=== PATIENT | female | born 1980 | race Caucasian/White ===

== ENCOUNTER 2018-02-03 09:17 | Emergency (ER) | payer OTHER ==
[2018-02-03] MEDS: HYDROCODONE/APAP (10/325) TAB PO (10:18)
== END 2018-02-03 10:49 | disposition home or self-care (01) ==
LOC: FTE 09:17
DX: L02.213 Cutaneous abscess of chest wall (principal); D17.0 Benign lipomatous neoplasm of skin and subcutaneous tissue of head, face and neck; D28.0 Benign neoplasm of vulva; L02.01 Cutaneous abscess of face; N90.7 Vulvar cyst
CPT/HCPCS: 99284; Z7610